=== PATIENT | male | born 1990 | race Caucasian/White ===

== ENCOUNTER 2017-11-03 06:30 | Emergency (ER) | payer MEDICAID ==
[~2017-11-03] VITALS: Ht 162.6 cm; Wt 145.4 kg
[~2017-11-03 06:30] MED LIST: ADVAIR DISK1 IN; ADVAIR DISK2 IN; ALBUTEROL0.5 % IN; ALBUTEROL2.5 MG/31 IN; BACTRIM DS1 TAB OR; BACTRIM DS1 TAB PO; BLOOD PRESSURE MED?; BUPROPION HCL150 M1 PO; KEFLEX500 M1 PO; LAMICTAL150 MG PO; LAMICTAL25 M1; LISINOP/HCTZ1 TA1 PO; LORTAB5 PO; MEDDOSEPAK PO; MEDROL4 M1 OR; METFORMIN HCL1000 MG PO; PRAVASTATIN SOD20 MG PO; PREDNISONE20 MG OR; PROAIR HFA IN; PROVENTIL HFA IN; PROVENTIL IN; PROVENTIL INH17 GM IN; ROBITUSSIN AC10 ML PO; SINGULAIR10 MG OR; SINGULAIR10 MG PO; WELLBUTRIN100 M1; ZITHROMAX250 MG PO
[2017-11-03 07:12] LABS: HEMATOCRIT 43.7 % (39.0-50.0); HEMOGLOBIN 14.9 g/dl (14.0-18.0); IMMATURE GRANULOCYTES 0.3 % (0.0-1.0); MEAN CELL VOLUME 87.2 fL CALC (80.0-100.0); MEAN CORPUSCULAR HGB 29.7 pG CALC (26.0-32.0); MEAN CORPUSCULAR HGB CONC 34.1 g/L CALC (32.0-36.0); NEUT# 8.95 thou/uL (1.82-7.42); RED BLOOD COUNT 5.01 mill/uL (4.70-6.10); RED CELL DISTRI WIDTH 12.2 % (11.5-15.5)
[2017-11-03] MEDS ORDERED: PREDNISONE50 MG PO (07:23)
[2017-11-03] MEDS ORDERED: MOTRIN800 MG PO (07:23)
[2017-11-03] MEDS ORDERED: ZITHROMAX250 MG PO (07:23)
[2017-11-03 07:27] LABS: ALBUMIN 4.3 g/dL (3.2-5.0); ALKALINE PHOSPHATASE 83 u/l (38-126); ANION GAP 17 (6-22 (CALC)); BILIRUBIN, TOTAL 0.5 mg/dL (0.0-1.4); BUN 9 mg/dL (9-20); BUN/CREATININE RATIO 12 (12-20 (CALC)); CALCIUM 9.4 mg/dL (8.4-10.2); CARBON DIOXIDE 24 mmol/l (22-30); CHLORIDE 107 mmol/l (95-108); CREATININE 0.7 mg/dL (0.7-1.3); GFR > 60 ML/MIN (>=60 (CALC)); GFR FOR AFR.AMER. > 60 ML/MIN (>=60 (CALC)); GLUCOSE 150 mg/dL (75-110); POTASSIUM 4.7 mmol/l (3.5-5.1); SGOT/AST 29 u/l (17-59); SGPT/ALT 45 u/l (21-72); SODIUM 143 mmol/l (137-146); TOTAL PROTEIN 7.4 g/dL (6.3-8.2)
[2017-11-03] MEDS ORDERED: ALBUTEROL SUL0.083 % IN (07:34)
[2017-11-03] MEDS ORDERED: VENTOLIN HFA IN (07:34)
[2017-11-03 07:36] VITALS: BP 183/106
== END 2017-11-03 07:48 | disposition home or self-care (01) | DRG 202 ==
LOC: ED 06:30
PROVIDERS: Emergency Medicine
DX: J20.9 Acute bronchitis, unspecified (principal); J45.901 Unspecified asthma with (acute) exacerbation; E66.9 Obesity, unspecified; E11.9 Type 2 diabetes mellitus without complications; I10 Essential (primary) hypertension; F32.9 Major depressive disorder, single episode, unspecified

== ENCOUNTER 2017-11-28 19:39 | Observation (INO) | payer MEDICAID ==
[~2017-11-28] VITALS: Ht 162.6 cm; Wt 144.0 kg
[~2017-11-28 19:39] MED LIST changes: +ALBUTEROL SUL0.083 % IN; +MOTRIN800 MG PO; +PREDNISONE50 MG PO; +VENTOLIN HFA IN
--- NOTE | 2017-11-28 19:49 | NUR ---
TO ROOM 10 WITH STEADY GAIT
[2017-11-28 20:31] LABS: HEMATOCRIT 43.4 % (39.0-50.0); HEMOGLOBIN 15.3 g/dl (14.0-18.0); IMMATURE GRANULOCYTES 0.5 % (0.0-1.0); MEAN CELL VOLUME 84.3 fL CALC (80.0-100.0); MEAN CORPUSCULAR HGB 29.7 pG CALC (26.0-32.0); MEAN CORPUSCULAR HGB CONC 35.3 g/L CALC (32.0-36.0); NEUT# 7.45 thou/uL (1.82-7.42); RED BLOOD COUNT 5.15 mill/uL (4.70-6.10); RED CELL DISTRI WIDTH 12.3 % (11.5-15.5)
[2017-11-28 20:36] LABS: INFLUENZA A POSITIVE (NONE DETECT); INFLUENZA B NONE DETECTED (NONE DETECT)
[2017-11-28 20:47] LABS: ALBUMIN 4.6 g/dL (3.2-5.0); ALKALINE PHOSPHATASE 97 u/l (38-126); ANION GAP 19 (6-22 (CALC)); BILIRUBIN, TOTAL 0.7 mg/dL (0.0-1.4); BUN 10 mg/dL (9-20); BUN/CREATININE RATIO 14 (12-20 (CALC)); CALCIUM 10.3 mg/dL (8.4-10.2); CARBON DIOXIDE 23 mmol/l (22-30); CHLORIDE 101 mmol/l (95-108); CREATININE 0.7 mg/dL (0.7-1.3); GFR > 60 ML/MIN (>=60 (CALC)); GFR FOR AFR.AMER. > 60 ML/MIN (>=60 (CALC)); GLUCOSE 210 mg/dL (75-110); POTASSIUM 4.6 mmol/l (3.5-5.1); SGOT/AST 68 u/l (17-59); SGPT/ALT 70 u/l (21-72); SODIUM 138 mmol/l (137-146); TOTAL PROTEIN 7.9 g/dL (6.3-8.2)
--- NOTE | 2017-11-28 20:47 | NUR ---
XRAY AT BEDSIDE
[2017-11-28 20:53] LABS: URINE BILIRUBIN - DIPSTICK NEGATIVE (NEGATIVE); URINE BLOOD DIPSTICK TRACE-INTACT (NEGATIVE); URINE COLOR YELLOW; URINE GLUCOSE - DIPSTICK NEGATIVE (NEGATIVE); URINE KETONE TRACE mg/dL (NEGATIVE); URINE LEUK ESTERASE NEGATIVE (Negative); URINE NITRITE - DIPSTICK NEGATIVE (Negative); URINE PROTEIN - DIPSTICK 100 mg/dL (NEG-TRACE); URINE SPECIFIC GRAVITY >=1.030; URINE UROBILINOGEN - DIPSTICK 0.2 E.U./dL (0.2)
[2017-11-28 20:54] LABS: URINE CLARITY CLEAR
[2017-11-28 21:00] LABS: URINE SQUAMOUS EPITHELIAL CELL FEW EPI/hpf (0-FEW)
--- NOTE | 2017-11-28 21:45 | NUR ---
PT FEELING BETTER. DRINKING GINGERALE.
[2017-11-29 00:20] VITALS: BP 133/65
--- NOTE | 2017-11-29 00:20 | NUR ---
PT TRANSFERRED TO FLOOR VIA STRETCHER ACCOMPANIED BY PRIMO BAUER;PT AMBULATED WITH A STEADY GAIT TO STANDING SCALE AND BEDSIDE;VS OBTAINED BY MINA STUART;PT ORIENTED TO ROOM AND CALL LIGHT SYSTEM AND VERBALIZES UNDERSTANDING;ASSESSMENT COMPLETED;PT REPORTS HAVE FLU LIKE SYMPTOMS OF 1 WEEK AND SAW HIS PRIMARY CARE ON Friday11/20/17;RESPIRATIONS EVEN AND UNLABORED ON RA;DENIES ANY PAIN BUT DOES COMPLAIN OF NAUSEA;#20G TO RIGHT HAND FLUSHED AND PATENT;TELE MONITOR IN PLACE;CURRENT TEMP 98.7;SKIN INTACT;PT VOICES NO OTHER NEEDS AT THIS TIME;EMESIS BAGS AT BEDSIDE;PO FLUIDS ENCOURAGED;CALL LIGHT IN REACH;WILL CONTINUE TO MONITOR
--- NOTE | 2017-11-29 00:33 | NUR ---
TO FLOOR. VOMITED UPON ARRIVAL TO FLOOR
--- NOTE | 2017-11-29 00:54 | NUR ---
PT MEDICATED WITH 4MG IVP OF ZOFRAN FOR NAUSEA
[2017-11-29 05:25] VITALS: BP 137/75
--- NOTE | 2017-11-29 05:32 | NUR ---
PT COMPLAINS OF HEADACHE PAIN RATING 7/10 ON THE PAIN SCALE;PT MEDICATED WITH SCHEDULED MOTRIN 800MG;IV FLUIDS INFUSING WELL TO RIGHT HAND,SITE APPEARS HEALTHY;RESPIRATIONS EVEN AND UNLABORED ON RA;TELE MONITOR IN PLACE;CURRENT TEMP 98.8;CONTACT PRECAUTIONS PUT INTO PLACE FOR HX OF MRSA;PT RIGHT NARE SWABBED AND SENT TO LAB;FRESH WATER PROVIDED;CALL LIGHT IN REACH;WILL CONTINUE TO MONITOR
--- NOTE | 2017-11-29 07:31 | NUR ---
REPORT RECEIVED FROM NIGHT NURSE, PT.IS SLEEPING AT THIS TIME. CALL LIGHT IS W/IN REACH, I WILL FOLLOW-UP WITH V/S, ASSESSMENT AND MEDICAITONS ORDERED
[2017-11-29 08:00] VITALS: BP 148/82
[2017-11-29 08:31] VITALS: BP 148/82
[2017-11-29] MEDS ORDERED: TAM75CAP PO (12:49)
--- NOTE | 2017-11-29 14:40 | NUR ---
PT.DISCHARGED OFF THE FLOOR IN GOOD CONDITION, VIA WC ACCOMPANIED BY STAFF AND FAMILY. PT.IV REMOVED/SITE APPEARS HEALTHY AND INTACT. SURVEY SUPERVISOR REMOVED.
== END 2017-11-29 14:40 | disposition home or self-care (01) | DRG 153 ==
LOC: ED 19:39 → ED-I 22:30 → ED 23:18 → MS2 23:19
PROVIDERS: Emergency Medicine; ADMIT Internal Medicine; ATTEND Internal Medicine
DX: J11.1 Influenza due to unidentified influenza virus with other respiratory manifestations (principal); J45.901 Unspecified asthma with (acute) exacerbation; E11.9 Type 2 diabetes mellitus without complications; I10 Essential (primary) hypertension; E66.9 Obesity, unspecified
CPT/HCPCS: G0378; J1650

== ENCOUNTER 2021-03-21 20:12 | Emergency (ER) | payer MEDICARE ==
[~2021-03-21 20:12] MED LIST changes: +TAM75CAP PO
[2021-03-21 21:15] VITALS: BP 139/92
[2021-03-21 21:52] LABS: HEMATOCRIT 43.4 % (39.0-50.0); HEMOGLOBIN 15.4 g/dl (14.0-18.0); IMMATURE GRANULOCYTES 0.5 % (0.0-5.0); MEAN CELL VOLUME 82.8 fL CALC (80.0-100.0); MEAN CORPUSCULAR HGB 29.4 pG CALC (26.0-32.0); MEAN CORPUSCULAR HGB CONC 35.5 g/dL CAL (32.0-36.0); NEUT# 11.85 thou/uL (1.82-7.42); RED BLOOD COUNT 5.24 mill/uL (4.70-6.10); RED CELL DISTRI WIDTH 11.8 % (11.5-15.5); URINE BILIRUBIN - DIPSTICK NEGATIVE (NEGATIVE); URINE BLOOD DIPSTICK NEGATIVE (NEGATIVE); URINE COLOR YELLOW; URINE GLUCOSE - DIPSTICK >=1000 mg/dL (NEGATIVE); URINE KETONE 40 mg/dL (NEGATIVE); URINE LEUK ESTERASE NEGATIVE (NEGATIVE); URINE PROTEIN - DIPSTICK 100 mg/dL (NEG-TRACE); URINE UROBILINOGEN - DIPSTICK 0.2 E.U./dL (0.2)
[2021-03-21 21:59] LABS: URINE NITRITE - DIPSTICK NEGATIVE (Negative)
[2021-03-21 22:01] LABS: URINE SQUAMOUS EPITHELIAL CELL FEW EPI/hpf (0-FEW)
[2021-03-21 22:07] LABS: ALBUMIN 4.3 g/dL (3.2-5.0); ALKALINE PHOSPHATASE 122 u/l (38-126); BILIRUBIN, TOTAL 0.7 mg/dL (0.0-1.4); BUN 8 mg/dL (9-20); BUN/CREATININE RATIO 12 (12-20 (CALC)); CARBON DIOXIDE 22 mmol/l (22-30); CHLORIDE 98 mmol/l (95-108); CREATININE 0.6 mg/dL (0.7-1.3); GFR > 60 ML/MIN (>=60 (CALC)); GFR FOR AFR.AMER. > 60 ML/MIN (>=60 (CALC)); LIPASE 27 u/l (23-300); SGOT/AST 23 u/l (17-59)
[2021-03-21 22:10] LABS: ANION GAP 13 (6-22 (CALC)); POTASSIUM 3.8 mmol/l (3.5-5.1); SODIUM 129 mmol/l (137-146)
[2021-03-22] MEDS ORDERED: KEFLEX500 M1 PO (00:45)
[2021-03-22] MEDS ORDERED: ONDANSETRON4 MG PO (00:46)
[2021-03-23] MEDS ORDERED: BACTRIM DS1 TAB PO (12:37)
== END 2021-03-22 01:05 | disposition home or self-care (01) ==
LOC: ED 20:12
PROVIDERS: Emergency Medicine
DX: K52.9 Noninfective gastroenteritis and colitis, unspecified (principal); L73.2 Hidradenitis suppurativa; E11.9 Type 2 diabetes mellitus without complications; I10 Essential (primary) hypertension; F32.9 Major depressive disorder, single episode, unspecified; Z79.84 Long term (current) use of oral hypoglycemic drugs

== ENCOUNTER 2021-03-23 11:16 | Emergency (ER) | payer MEDICARE ==
[~2021-03-23 11:16] MED LIST changes: +ONDANSETRON4 MG PO
[2021-03-23] MEDS ORDERED: BACTRIM DS1 TAB PO (12:37)
[2021-03-23 13:00] VITALS: BP 126/79
== END 2021-03-23 13:00 | disposition home or self-care (01) ==
LOC: ED 11:16
PROC: 0H9BXZZ Drainage of Right Upper Arm Skin, External Approach (ICD-10-PCS; principal; 2021-03-23)
DX: L02.411 Cutaneous abscess of right axilla (principal); L03.111 Cellulitis of right axilla; I10 Essential (primary) hypertension; E11.9 Type 2 diabetes mellitus without complications; F32.9 Major depressive disorder, single episode, unspecified; B95.61 Methicillin susceptible Staphylococcus aureus infection as the cause of diseases classified elsewhere; Z79.84 Long term (current) use of oral hypoglycemic drugs

== ENCOUNTER 2021-03-25 08:45 | Emergency (ER) | payer MEDICARE ==
[2021-03-25 09:10] VITALS: BP 141/78
== END 2021-03-25 09:45 | disposition home or self-care (01) ==
LOC: ED 08:45
DX: Z48.01 Encounter for change or removal of surgical wound dressing (principal); I10 Essential (primary) hypertension; E11.9 Type 2 diabetes mellitus without complications; F32.9 Major depressive disorder, single episode, unspecified; Z79.84 Long term (current) use of oral hypoglycemic drugs

== ENCOUNTER 2021-03-27 09:19 | Emergency (ER) | payer MEDICARE ==
[2021-03-27] MEDS ORDERED: INSULIN SC (09:46)
[2021-03-27] MEDS ORDERED: HUMALOG SC ×3 (09:47→09:49)
[2021-03-27 10:07] VITALS: BP 139/85
== END 2021-03-27 10:08 | disposition home or self-care (01) ==
LOC: ED 09:19
DX: Z48.01 Encounter for change or removal of surgical wound dressing (principal); I10 Essential (primary) hypertension; E11.9 Type 2 diabetes mellitus without complications; F32.9 Major depressive disorder, single episode, unspecified; Z79.4 Long term (current) use of insulin

== ENCOUNTER 2022-01-18 07:41 | Emergency (ER) | payer MEDICARE ==
[~2022-01-18] VITALS: Ht 167.6 cm; Wt 115.0 kg
[~2022-01-18 07:41] MED LIST changes: +HUMALOG SC; +INSULIN SC; +ORPHENADRINE100 MG PO; +VOLTAREN75 MG PO
[2022-01-18 12:34] VITALS: BP 133/93
== END 2022-01-18 12:35 | disposition short-term general hospital (02) ==
LOC: ED 07:41
DX: M50.222 Other cervical disc displacement at C5-C6 level (principal); I10 Essential (primary) hypertension; E11.9 Type 2 diabetes mellitus without complications; F32.A Depression, unspecified; Z79.4 Long term (current) use of insulin; Z79.84 Long term (current) use of oral hypoglycemic drugs

== ENCOUNTER 2023-07-26 07:36 | Emergency (ER) | payer MEDICARE ==
[~2023-07-26] VITALS: Ht 167.6 cm; Wt 119.0 kg
[~2023-07-26 07:36] MED LIST changes: -BUPROPION HCL150 M1 PO; +BUPROPION HYDR100 MG PO
[2023-07-26] MEDS ORDERED: CEPHALEXIN500 M1 PO (09:02)
[2023-07-26] MEDS ORDERED: BACTRIM DS1 TAB PO (09:04)
[2023-07-26] MEDS ORDERED: MOTRIN800 MG PO (09:05)
[2023-07-26 09:12] VITALS: BP 158/97
== END 2023-07-26 09:26 | disposition home or self-care (01) ==
LOC: ED 07:36
PROC: 0H9AXZZ Drainage of Inguinal Skin, External Approach (ICD-10-PCS; principal; 2023-07-26)
DX: L02.214 Cutaneous abscess of groin (principal); L03.314 Cellulitis of groin; I10 Essential (primary) hypertension; E11.9 Type 2 diabetes mellitus without complications; Z79.4 Long term (current) use of insulin

== ENCOUNTER 2023-07-28 13:56 | Observation (INO) | payer MEDICARE ==
[~2023-07-28] VITALS: Ht 167.6 cm; Wt 119.0 kg
[2023-07-28] VITALS (8 sets, daily range): BP systolic 132–166; BP diastolic 80–102
[~2023-07-28 13:56] MED LIST changes: +CEPHALEXIN500 M1 PO
--- NOTE | 2023-07-28 14:10 | NUR ---
AMB TO ROOM 6 WITH STEADY GAIT.
[2023-07-28 14:44] LABS: BASO% 0.3 % (0-3); HEMATOCRIT 45.8 % (39.0-50.0); HEMOGLOBIN 16.3 g/dl (14.0-18.0); IMMATURE GRANULOCYTES 0.2 % (0.0-5.0); LYMPH% 18.8 % (15-41); MEAN CELL VOLUME 83.6 fL CALC (80.0-100.0); MEAN CORPUSCULAR HGB 29.7 pG CALC (26.0-32.0); MEAN CORPUSCULAR HGB CONC 35.6 g/dL CAL (32.0-36.0); MONO% 7.6 % (2-13); NEUT# 8.62 thou/uL (1.82-7.42); NEUT% 70.1 % (42-76); RED BLOOD COUNT 5.48 mill/uL (4.70-6.10); RED CELL DISTRI WIDTH 11.4 % (11.5-15.5)
[2023-07-28 14:51] LABS: ALBUMIN 4.2 g/dL (3.2-5.0); ALKALINE PHOSPHATASE 127 u/l (38-126); BUN 11 mg/dL (9-20); BUN/CREATININE RATIO 16 (12-20 (CALC)); CARBON DIOXIDE 22 mmol/l (22-30); CHLORIDE 95 mmol/l (95-108); CREATININE 0.7 mg/dL (0.7-1.3); GFR FOR AFR.AMER. > 60 ML/MIN (>=60 (CALC)); GFR OTHER RACES > 60 ML/MIN (>=60 (CALC)); POTASSIUM 4.4 mmol/l (3.5-5.1); SGOT/AST 38 u/l (17-59)
[2023-07-28 14:55] LABS: ANION GAP 15 (6-22 (CALC)); BILIRUBIN, TOTAL 0.9 mg/dL (0.2-1.3); SODIUM 128 mmol/l (137-146)
--- NOTE | 2023-07-28 15:29 | NUR ---
CHECKED ON PT. NAD AT THIS TIME. PT REPORTS THAT THE WOUND DOES NOT HURT AT THIS MOMENT. WATER AND GATORADE WERE PROVIDED TO PT.
--- NOTE | 2023-07-28 16:09 | NUR ---
ATTEMPTED TO CALL RN FOR ROOM 267 FOR PT ADMITT. WAS MADE AWARE RN WILL CALL BACK.
--- NOTE | 2023-07-28 16:38 | NUR ---
TELEPHONE REPORT CALLED TO NEPTALI TILLMAN ON MED/SURG FOR PT TO BE TRANSFERED TO ROOM 267.
--- NOTE | 2023-07-28 17:10 | NUR ---
REPORT RECEIVED FORM PRIMO CHRISTINA IN ED, PT ARRIVED ON UNIT 2 2505 TRANSPORTED VIA W/C AND STRANFERRED TO BED. ALERT AND ORIENTED X 3, DENIES PAIN AND REPORTS HIS RIGHT GROIN ONLY HURTS WHENEVED HE TOUCHES IT. ORIENTED TO ROOM AND CALL BARRON, WILL CONTINUE TO MONITOR.
--- NOTE | 2023-07-28 17:11 | NUR ---
TRANSPORTED PT TO MED/SURG 267 AND NEPTALI TILLMAN TOOK OVER CARE OF PT. NAD AT TIME OF ADMISSION, PT IS ALERT AND ORIENTED X3, AMBULATORY WITHOUT ASSISTANCE, AND ON ROOM AIR. PT ALSO HAS A PATENT 20 GAUGE LEFT AC IV.
--- NOTE | 2023-07-28 19:45 | NUR ---
PATIENT RESTING IN BED WATCHING TV AT THIS TIME. AWAKE ALERT AND ORIENTEDX3. PATIENT WITH NO COMPLAINTS AT THIS TIME. FOR I&D OF RIGHT GROIN ABCESS IN THE MORNING WITH DR. CAMPOS. NPO AFTER MIDNIGHT. SALINE LOCK TO LAC INTACT. SAFETY PRECAUTIONS REINFORCED. CALL LIGHT IN REACH. WILL CONT TO MONITOR.
--- NOTE | 2023-07-28 22:15 | NUR ---
PATIENT RESTING IN BED-GLUCOSE TONIGHT IS 386-COVERED WITH 8UNITS OF HUMALOG PER COVERAGE PROTOCOL. PROVIDED WITH HS SNACK. PATIENT UP TO TAKE PRE-OP SHOWER USING ANTISEPTIC SCRUB. CONSENT FOR OR OBTAINED. IVF NS HUNG AND INFUSING ORDERED VIA LAC SITE. SITE IS HEALTHY WITH GOOD BLOOD RETURN. INSTRUCTED THAT HE WILL BE NPO AFTER MIDNIGHT FOR OR TOMORROW. VERBALIZES UNDERSTANDING. RIGHT GROIN IS RED AND SWOLLEN-NO DRAINAGE NOTED. SAFETY PRECAUTIONS REINFORCED. CALL LIGHT IN REACH. WILL CONT TO MONITOR.
[2023-07-29] VITALS (10 sets, daily range): BP systolic 113–140; BP diastolic 61–84
--- NOTE | 2023-07-29 00:18 | NUR ---
PATIENT RESTING IN BED POSITIONED ON LEFT SIDE WITH EYES CLOSED. RESPS ARE EVEN AND UNLABORED,. NPO AT THIS TIME AND PITCHER REMOVED FROM BEDSIDE TABLE. IVF PATENT AND INFUSING ORDERED VIA LEFT AC SITE. ZOSYN HUNG ORDERED. CALL LIGHT IN REACH. WILL CONT TO MONITOR.
--- NOTE | 2023-07-29 02:07 | NUR ---
PATIENT POSITIONED ON LEFT SIDE WITH EYES CLOSED. RESPS ARE EVEN AND UNLABORED. IVF PATENT AND INFUSING VIA LAC SITE AT 175CC/HR. REMAINS NPO FOR OR THIS MORNING. CONSENT IS SIGNED. CALL LIGHT IN REACH, WILL CONT TO MONITOR.
--- NOTE | 2023-07-29 04:37 | NUR ---
PATIENT RESTING IN BED WITH EYES CLOSED. APPEARS SLEEPING AT THIS TIME. IVF PATENT AND INFUSING VIA LAC SITE ORDERED AT 175CC/HR. REMAINS NPO FOR OR THIS MORNING. RESPS ARE EVEN AND UNLABORED. CALL LIGHT IN REACH. WILL CONT TO MONITOR.
[2023-07-29 06:45] LABS: HEMATOCRIT 41.9 % (39.0-50.0); HEMOGLOBIN 14.7 g/dl (14.0-18.0); MEAN CELL VOLUME 84.8 fL CALC (80.0-100.0); MEAN CORPUSCULAR HGB 29.8 pG CALC (26.0-32.0); MEAN CORPUSCULAR HGB CONC 35.1 g/dL CAL (32.0-36.0); RED BLOOD COUNT 4.94 mill/uL (4.70-6.10); RED CELL DISTRI WIDTH 11.6 % (11.5-15.5)
[2023-07-29 07:14] LABS: ANION GAP 14 (6-22 (CALC)); BUN 8 mg/dL (9-20); BUN/CREATININE RATIO 13 (12-20 (CALC)); CALCULATED LDLCHOLESTEROL 128 mg/dL (62-129 (CALC)); CARBON DIOXIDE 21 mmol/l (22-30); CHLORIDE 101 mmol/l (95-108); CHOLESTEROL HDL RATIO 8.2 (<4.4 (CALC)); CREATININE 0.6 mg/dL (0.7-1.3); GFR FOR AFR.AMER. > 60 ML/MIN (>=60 (CALC)); GFR OTHER RACES > 60 ML/MIN (>=60 (CALC)); HDL CHOLESTEROL 27 mg/dL (39.0-59.0); MAGNESIUM 1.8 mg/dL (1.6-2.3); POTASSIUM 4.5 mmol/l (3.5-5.1); SODIUM 132 mmol/l (137-146); TOTAL CHOLESTEROL 226 mg/dl (0-199); TOTAL TRIGLYCERIDES 354 mg/dl (0-149); VLDL CHOLESTROL 71 mg/dl (5-56 (CALC))
--- NOTE | 2023-07-29 08:06 | NUR ---
PT RESTING IN BED. ASSESSMENT COMPLETE. UPDATED PT IN CURRENT PLAN OF CARE.PT INIDCATED UNDERSTANING. STATES NO PAIN. FALL/SAFTEY PRECAUTIONIN PLACE. CALL LIGHT WITHINR EACH
--- NOTE | 2023-07-29 10:00 | NUR ---
PT TRANSPORTED TO OR VIA STRETCHER WITH BILINGUAL TEACHER AIDE
--- NOTE | 2023-07-29 11:23 | NUR ---
PT AT OR AT THIS TIME
[2023-07-29] MEDS ORDERED: LAMICTAL100 M1 PO (12:40)
[2023-07-29] MEDS ORDERED: TRESIBA FL200 UNIT/M SC (12:49)
[2023-07-29] MEDS ORDERED: BUPROPION HYDR100 MG PO (13:55)
--- NOTE | 2023-07-29 16:00 | NUR ---
PT INCONTINENT EPSIODE OF URINE. PERICARE PROVIDED W/ WRITER TE[employer]NICAL [employer]S REORIENTATED PT TO ROOM AND CALL BALL SYSTEM. FALL/SAFTEY PRECAUTION IN PLACE. CALL LIGHT WITHIN REACH
--- NOTE | 2023-07-29 20:27 | NUR ---
PATIENT RESTING IN BED AT THIS TIME-AWAKE ALERT AND ORIENTEDX3. PATIENT IS POST-OP RIGHT GROIN I&D OF ABCESS. DRESSING TO AREA IS INTACT WITH SOME BLOODY DRAINAGE NOTED ON THE DRESSING. WILL BE CHANGING THE DRESSING SHORTLY. PATIENT WITH IVF PATENT AND INFUSING VIA LAC SITE AT 80CC/HR. SITE REMAINS HEALTHY AT THIS TIME. GLUCOSE TONIGHT IS 299-COVERED WITH HUMALOG 5UNITS SQ PER SS COVERAGE PROTOCOL AND MEDICATED WITH LEVEMIR 50UNITS SCHEDULED. HS SNACK PROVIDED. PATIENT STATES THAT HE IS VOIDING WITHOUT ANY DIFFICULTY. LUNGS ARE CLEAR. ABD IS SOFT WITH ACTIVE BS. NO PERIPHERAL EDEMA NOTED. PULSES ARE PALPABLE. CALL LIGHT IN REACH. WILL CONT TO MONITOR.
--- NOTE | 2023-07-29 23:00 | NUR ---
PATIENT RESTING IN BED AT THIS TIME. PATIENT PRE-MEDICATED WITH DILAUDID 1MG IVP PRIOR TO RIGHT GROIN WOUND CARE. ANCEF HUNG AND INFUSING ORDERED VIA LAC SITE. WOUND CARE TO RIGHT GROIN DONE ORDERED. MOIST TO DRY WOUND CARE DONE. PACKING REMOVED AND WAS SATURATED WITH BRIGHT RED BLOOD. OUTER DRESSING 50% SATURATED WITH BLOODY DRAINING. SALINE MOISTED GAUZE PACKED INTO WOUND AND COVERED WITH 4X4'S AND ABD. SECURED WITH MESH PANTY. PATIENT TOLERATED THE PROCEDURE WELL. VOIDED 600CC OF COSTA URINE IN URINAL. CALL LIGHT IN REACH. WILL CONT TO MONITOR.
[2023-07-30 04:11] VITALS: BP 137/64
--- NOTE | 2023-07-30 05:57 | NUR ---
PATIENT RESTING IN BED AWAKE AND ALERT-C/O POST-OP PAIN. MEDICATED WITH PERCOCET 5/325MG FOR 5/10 PAIN SCALE. IVF PATENT AND INFUSING VIA LAC AT 80CC/HR. DRESSING TO RIGHT GROIN INTACT. CALL LIGHT IN REACH. WILL CONT TO MONITOR.
[2023-07-30 06:26] LABS: BASO% 0.2 % (0-3); EOS% 4.4 % (0-8); HEMATOCRIT 40.3 % (39.0-50.0); HEMOGLOBIN 14.2 g/dl (14.0-18.0); IMMATURE GRANULOCYTES 0.3 % (0.0-5.0); LYMPH% 15.8 % (15-41); MEAN CELL VOLUME 86.7 fL CALC (80.0-100.0); MEAN CORPUSCULAR HGB 30.5 pG CALC (26.0-32.0); MEAN CORPUSCULAR HGB CONC 35.2 g/dL CAL (32.0-36.0); MONO% 8.4 % (2-13); NEUT# 6.49 thou/uL (1.82-7.42); NEUT% 70.9 % (42-76); RED BLOOD COUNT 4.65 mill/uL (4.70-6.10); RED CELL DISTRI WIDTH 11.6 % (11.5-15.5)
[2023-07-30 06:55] LABS: ALKALINE PHOSPHATASE 89 u/l (38-126); ANION GAP 12 (6-22 (CALC)); BILIRUBIN, TOTAL 0.6 mg/dL (0.2-1.3); BUN 8 mg/dL (9-20); BUN/CREATININE RATIO 13 (12-20 (CALC)); CARBON DIOXIDE 24 mmol/l (22-30); CHLORIDE 102 mmol/l (95-108); CREATININE 0.6 mg/dL (0.7-1.3); GFR FOR AFR.AMER. > 60 ML/MIN (>=60 (CALC)); GFR OTHER RACES > 60 ML/MIN (>=60 (CALC)); MAGNESIUM 1.8 mg/dL (1.6-2.3); SGOT/AST 32 u/l (17-59); SODIUM 134 mmol/l (137-146)
[2023-07-30 07:06] LABS: ALBUMIN 3.1 g/dL (3.2-5.0); TOTAL PROTEIN 6.1 g/dL (6.3-8.2)
[2023-07-30 07:43] VITALS: BP 147/90
--- NOTE | 2023-07-30 08:06 | NUR ---
BEDSIDE SHIFT REPORT, PT SLEEPING SOUNDLY BUT AWAKENS TO TACTILE STIMULI, ORIENTED, NO C/O DISCOMFORT AT THIS TIME, IVF INFUSING, CALL BARRON IN REACH AND BED LOCKED IN LOWEST POSITION.
[2023-07-30 09:52] VITALS: BP 145/79
--- NOTE | 2023-07-30 10:36 | NUR ---
OLD DRESSING FROM SURGICAL INCISION TO RIGHT GROIN REMOVED, DRESSING SATURATED WITH BRIGHT RED BLOOD, MOIST TO DRY PACKING APPLIED PER ORDER, 4X4 AND ABD COVER WOND AND SECURED WITH PAPER TAPE, PT TOLERATED PROCEDURE WELL.
[2023-07-30 10:58] VITALS: BP 127/88
--- NOTE | 2023-07-30 12:00 | NUR ---
STABLE CONDITION, D/C PLANS WITH WOUND CARE DISCUSSED, PT UNABLE TO CHANGE DRESSING INDEPENDENTLY DUE TO ANATOMY, [employer]LE DEVELOPER REPOTED FAMILY MEMBER WILL COME AND BE TAUGHT TO DO BID DRESSING CHANGES, IN ADDITION, HOME HEALTH WILL BE CONTACTED TO ASSIST WELL IF APPROVED BY INSURANCE CO.
[2023-07-30] MEDS ORDERED: BACTRIM DS1 TAB PO (14:10)
[2023-07-30 16:41] VITALS: BP 137/76
--- NOTE | 2023-07-30 16:42 | NUR ---
SITTING UP IN BED, INFORMED/VERIFIED PLAN, STATES UNDERSTANDING.
[2023-07-30] MEDS ORDERED: MOTRIN400 MG/TAB PO (19:14)
--- NOTE | 2023-07-30 19:25 | NUR ---
Discharge instructions given. Patient verbalizes understanding of same. Discharged in fair condition via Wheelchair to Home with family. All belongings sent with pt.
--- NOTE | 2023-07-30 19:28 | NUR ---
PT'S UNCLE HERE FOR TRAINING ON DRESSING CHANGE, DEMONSTRATED EFFICIENTLY THE METHOD OF CHANGING DRESSING BY VERVAL INSTRUCTIONS ONLY.
== END 2023-07-30 19:03 | disposition home health service (06) ==
LOC: ED 13:56 → ED-I 14:18 → ED 15:27 → MS2 15:28
PROVIDERS: Nurse Practitioner; Nurse Practitioner Family; Student in an Organized Health Care Education/Training Program; ADMIT Student in an Organized Health Care Education/Training Program; ATTEND Student in an Organized Health Care Education/Training Program
PROC: 0H9AXZZ Drainage of Inguinal Skin, External Approach (ICD-10-PCS; principal; 2023-07-29)
DX: L02.214 Cutaneous abscess of groin (principal); L03.314 Cellulitis of groin; E11.65 Type 2 diabetes mellitus with hyperglycemia; I10 Essential (primary) hypertension; E78.5 Hyperlipidemia, unspecified; K21.9 Gastro-esophageal reflux disease without esophagitis; E66.9 Obesity, unspecified; F32.A Depression, unspecified; Z79.4 Long term (current) use of insulin
CPT/HCPCS: J0131